=== PATIENT | male | born 1955 | race Caucasian/White ===

== ENCOUNTER 2017-12-03 11:24 | Day surgery (SDC) | payer OTHER ==
[2017-12-03] MEDS ORDERED: MIDAZOLAM 1 MG/ML 2 ML INJ ×3 (14:51→14:52)
[2017-12-03] MEDS ORDERED: FENTAnyl 50 MCG/ML VIAL ×2 (14:51)
== END 2017-12-03 16:25 | disposition home or self-care (01) ==
LOC: GIL 11:24
DX: Z12.11 Encounter for screening for malignant neoplasm of colon (principal); K64.8 Other hemorrhoids; Z79.82 Long term (current) use of aspirin
CPT/HCPCS: 45378